=== PATIENT | male | born 1950 | race American Indian/Alaskan Native ===

== ENCOUNTER 2021-01-11 16:55 | Inpatient (IN) | payer OTHER ==
[2021-01-12] MEDS ORDERED: ACETAMINOPHEN 325 MG TAB PO PRN (10:25)
[2021-01-12] MEDS ORDERED: hydrALAZINE 20 MG/1 ML INJ IV PRN (10:26)
[2021-01-12] MEDS ORDERED: ONDANSETRON 4 MG ODT TAB PO PRN (10:26)
[2021-01-12] MEDS ORDERED: POLYETHYLENE GLYCOL 3350 17 GM POWDER PO PRN (10:26)
[2021-01-13] MEDS: HYDROcodone/ACETAMINOPHEN 5-325 MG TAB PO PRN (03:44)
[2021-01-13 06:18] LABS: Basophils % (Auto) 0.8 % (0.0-1.8); Eosinophils # (Auto) 0.1 K/mm3 (0.0-0.4); Eosinophils % (Auto) 2.3 % (0.0-4.3); Hemoglobin 14.3 gm/dl (11.8-15.2); Lymphocytes # (Auto) 1.5 K/mm3 (1.2-5.4); Lymphocytes % (Auto) 28.7 % (13.4-35.0); Mean Corpuscular HGB Conc 34 % (32-34); Mean Corpuscular Volume 92 fl (84-94); Monocytes # (Auto) 0.6 K/mm3 (0.0-0.8); Platelet Count 360 K/mm3 (140-440); Red Blood Count 4.57 M/mm3 (3.65-5.03)
[2021-01-13 06:33] LABS: Alanine Aminotransferase 11 units/L (7-56); Albumin 3.9 g/dL (3.9-5); BUN/Creatinine Ratio 18; Blood Urea Nitrogen 11 mg/dL (9-20); Hemolysis Index 3
--- NOTE | 2021-01-13 08:46 | History and Physical Report ---
History of Present Illness Date: 01/13/21 Date of admission: 01/13/21 02:13 Chief Complaint: Debility and Afib History of present illness: 70-year-old male admitted outside hospital on January 02, 2021 with complaints of chest pain and palpitations over the past several days prior to admission. Patient reportedly had several visits for chest pain in the past. EKG showed atrial fibrillation with RVR with a rate in the 140s. Patient converted to normal sinus rhythm and was started on Eliquis and metoprolol. Recent left heart cath showed no obstructive CAD. Patient did have GERD with PUD and was treated with PPI and Carafate. He underwent a upper GI endoscopy and results showed erosions. Patient was treated for H. pylori however that was stopped prior to transfer. Pathology report did show that the stomach was positive for H. pylori. Will attempt to contact outside hospital to find out why the treatment was stopped. After the patient was medically stabilized they were transferred for further rehabilitation. All available medical records have been reviewed. Plan of care was discussed with patient. Unfortunately patient's transfer was delayed due to insurance approval followed by bed/staff availability. Patient was supposed to be transferred over to rehab later today however for some unknown reason came early this morning about 1 AM. Past History Past Medical History: atrial fib, GERD Past Surgical History: total hip replacement (Left) Social history: Lives alone. denies: smoking (Former), alcohol abuse Family history: CAD, cancer Medications and Allergies Allergies Allergy/AdvReac Type Severity Reaction Status Date / Time No Known Allergies Allergy Unverified 01/12/21 18:31 Home Medications Medication Instructions Recorded Confirmed Last Taken Type Amoxicillin [Trimox CAP] 2 cap BID 01/13/21 01/13/21 01/12/21 19:45 History Apixaban [Eliquis] 5 mg PO BID 01/13/21 01/13/21 01/12/21 19:45 History Clarithromycin [Biaxin] 500 mg PO BID 01/13/21 01/13/21 01/12/21 19:45 History Metoprolol [Lopressor] 25 mg PO BID 01/13/21 01/13/21 01/12/21 19:45 History Pantoprazole [Protonix] 40 mg PO QDAY 01/13/21 01/13/21 01/12/21 08:45 History Active Meds: Active Medications Acetaminophen (Acetaminophen 325 Mg Tab) 650 mg PO Q6H PRN PRN Reason: Pain MILD(1-3)/Fever >100.5/WRIGHT Hydrocodone Bitart/Acetaminophen (Hydrocodone/Acetaminophen 5-325 Mg Tab) 1 each PO Q8H PRN PRN Reason: Pain, Moderate (4-6) Last Admin: 01/13/21 03:44 Dose: 1 each Documented by: Albuterol (Albuterol 2.5 Mg/3 Ml Nebu) 2.5 mg IH Q4HRT PRN PRN Reason: Shortness Of Breath Apixaban (Apixaban 5 Mg Tab) 5 mg PO Q12HR NADINE; Protocol Bisacodyl (Bisacodyl 10 Mg Rect Supp) 10 mg [place] QDAY PRN PRN Reason: Constipation Hydralazine HCl (Hydralazine 20 Mg/1 Ml Inj) 10 mg IV Q4HR PRN PRN Reason: Hypertension Metoprolol Tartrate (Metoprolol Tartrate 25 Mg Tab) 25 mg PO BID NADINE Ondansetron HCl (Ondansetron 4 Mg Odt Tab) 4 mg PO Q8H PRN PRN Reason: Nausea And Vomiting Pantoprazole Sodium (Pantoprazole 40 Mg Tab) 40 mg PO QDAC NADINE Polyethylene Glycol (Polyethylene Glycol 3350 17 Gm Powder) 17 gm PO QDAY PRN PRN Reason: Constipation Review of Systems All systems: negative (ROS negative for 10 systems except as noted below with pertinent positives and negatives.) Constitutional: no fever, no chills Ears, nose, mouth and throat: no decreased hearing, no voice changes Cardiovascular: no chest pain, no palpitations, no rapid/irregular heart beat, no edema Respiratory: no cough, no shortness of breath Gastrointestinal: no abdominal pain, no nausea, no vomiting Genitourinary Male: no hematuria Musculoskeletal: no shooting arm pain, no shooting leg pain Integumentary: no rash, no pruritis, no redness, no sores Neurological: no weakness, no numbness, no tingling Psychiatric: no anxiety, no insomnia Exam - Exam Narrative exam: MUSCULOSKELETAL SPECIALTY EXAM CONSTITUTIONAL: Well developed, well nourished, appropriately groomed LYMPHATIC: No appreciable abnormalities palpable in neck EENT: Hearing intact to soft voice RESPIRATORY: Clear to auscultation bilaterally, no increased work of breathing CARDIOVASCULAR: Regular Rate/ Rhythm, no swelling, edema or tenderness in BUE or BLE. Pulses palpable in all extremities. All extremities warm. GI: + bowel sounds, soft, NTTP, nondistended. INTEGUMENTARY: Normal, no lesion, rash, masses or bruising noted in extremities. MUSCULOSKELETAL: BUE and BLE normal without defect, crepitus, subluxation, effusion, arthritic changes or TTP. BUE 4+/5, good ROM, with normal tone. BLE 4+/5 good ROM, with normal tone NEURO: CN 2-12 grossly intact. Sensation intact in all extremities. Reflexes 2+ bilaterally at biceps, brachioradialis and patella. No clonus at ankles. Coordination intact in BUE. No tremor noted in 4 extremities. POSTURE and GAIT: Sitting posture good. Balance appears reasonable with standing. Gait deferred until seen with therapy. PSYCH: Alert, oriented x3, affect appears normal. Insight appears intact. - Constitutional Vitals: Vital Signs - 12hr 01/13/21 01/13/21 01/13/21 02:48 03:44 03:45 Temperature 98.5 F Pulse Rate 75 Pulse Rate [ 61 Right Radial] Respiratory 17 17 18 Rate Blood Pressure 104/64 [Right Arm] Blood Pressure 112/85 [Right] O2 Sat by Pulse 98 99 Oximetry - Labs CBC & Chem 7: 01/13/21 05:58 01/13/21 05:58 Labs: Laboratory Results - last 72 hr 01/13/21 01/13/21 05:58 05:58 WBC 5.3 RBC 4.57 Hgb 14.3 Hct 42.0 MCV 92 MCH 31 MCHC 34 RDW 14.0 Plt Count 360 Lymph % (Auto) 28.7 [place] % (Auto) 11.0 H Eos % (Auto) 2.3 Baso % (Auto) 0.8 Lymph # (Auto) 1.5 [place] # (Auto) 0.6 Eos # (Auto) 0.1 Baso # (Auto) 0.0 Seg Neutrophils % 57.2 Seg Neutrophils # 3.0 Sodium 140 Potassium 3.5 L Chloride 102.5 Carbon Dioxide 29 Anion Gap 12 BUN 11 Creatinine 0.6 L Estimated GFR > 60 BUN/Creatinine Ratio 18 Glucose 90 Calcium 9.0 Total Bilirubin 0.30 AST 16 ALT 11 Alkaline Phosphatase 52 Total Protein 7.5 Albumin 3.9 Albumin/Globulin Ratio 1.1 Assessment and Plan Assessment and plan: Patient was assessed and evaluated for Acute Inpatient Rehab Unit. Due to the patients above-mentioned medical complexity, along with decreased functional mobility and self care, this patient continues to require and be appropriate for a comprehensive, multidisciplinary [id number] rehabili tation program. These needs cannot be met in an outpatient or other less intensive setting. The patient would continue to benefit from skilled therapy intervention for at least 3 hours per day, five days a week, with techniques specific to the needs of the patient to improve function, activities of daily living, and reintegration into the community. The patient continues to require: -- OT to improve ROM, self-care, and learn use of adaptive equipment -- PT to improve strength and balance, functional transfers, and ambulation with energy conservation techniques to improve functional mobility -- NIGHT STOCKER to address cognitive deficits -- 24 hour RN to ensure and prevent skin breakdown, promote progressive independence while ensuring safety, ensure education regarding medications, and incorporation of the rehabilitation at the bedside -- 24 hour Quality Review Specialist to coordinate this interdisciplinary program, and to manage/prevent complications as a result of the patients medical comorbidities. -Plan of care by day 4 -Weekly team conferences With such a program, there is a reasonable certainty that the goals individualized for this patient can be achieved within the specified length of stay. Atrial fibrillation: Continue anticoagulation and rate control. Monitor for any signs of worsening dysrhythmia. Consider cardiology consult if needed. GERD/PUD with recent diagnosis of H. pylori: Uncertain why treatment was stopped at outside hospital prior to discharge. Will attempt to contact outside hospital to find out if they prefer to continue H. pylori treatment or if they felt he was fully treated prior to discharge. ADL dysfunction: OT will work on improving ability to perform ADLs (including assistive devices) to increase independence and decrease caregiver burden and improve functional transfers and mobility training. Difficulty walking: PT will work on gait training and proper use of assistive devices and advance as appropriate to use of stairs and outside ambulation on uneven surfaces. Unsteadiness on feet: PT will work on improving static and dynamic sitting and standing balance as well as proper use of assistive devices to decrease risk of falls. Abnormality of gait: PT will work to improve safety and efficiency of gait through neuromotor training and gait training along with instruction on proper use of assistive devices. Muscle weakness: PT & OT will work on strengthening exercises to improve functional strength including mixture of closed and open kinetic chain exercises. Debility: PT & OT will work on improving overall functional status to improve participation with ADLs, mobility and social involvement. Fatigue: PT & OT will work on improving endurance through aerobic exercises and therapeutic activity while monitoring patients tolerance for activity and vital signs as needed. DVT ppx: Eliquis Pain: Continue physical modalities in therapy and pain medications as needed to achieve functional pain control. Sleep: Monitor and address as needed. Bowel: Monitor and address as needed. Appetite: Monitor and address as needed. Discharge planning: Pending therapy progress and care plan meeting. Will continue discussion with therapy team, SW, patient and family. Restrictions/ Precautions: Falls, cardiac WB status: FWB Functional Hx: ADLs: Independent Cognition: Independent Mobility: No AD Barriers to Discharge: Decreased mobility and ability to perform self care, balance deficits, weakness Estimated Length of Stay: 710 days Discharge Destination: Home with family support POST ADMISSION PHYSICIAN EVALUATION I have examined the patient and find that functional status, medical condition and appropriateness for IRF admission are essentially unchanged from those described in the preadmission screening. Will monitor for worsening atrial fibrillation/dysrhythmia, DVT/PE, bowel and bladder complications and complications due to peptic ulcer disease, hypotension, and electrolyte abnormalities. Will attempt to avoid occurrence of these issues or treat them if they present themselves.
[2021-01-13] MEDS: PANTOPRAZOLE 40 MG TAB PO SCH (09:06)
[2021-01-13] MEDS: APIXABAN 5 MG TAB PO SCH ×2 (09:17→20:45)
[2021-01-13] MEDS: POTASSIUM CHLORIDE ER 20 MEQ TAB PO SCH (09:17)
[2021-01-13] MEDS: METOPROLOL TARTRATE 25 MG TAB PO SCH ×2 (09:20→20:45)
[2021-01-13] MEDS ORDERED: PE/MO/PET,WH 10 APPLIC/28 GM TUBE PR PRN (15:00)
[2021-01-13] MEDS ORDERED: PHENYLEPHRINE/SHARK LIVER/CCB 0.25/3/85.5%(PREP H) RECT SUPP PR PRN (15:00)
[2021-01-13] MEDS ORDERED: traZODone 50 MG TAB PO PRN (19:49)
[2021-01-13] MEDS: ALBUTEROL 2.5 MG/3 ML NEBU IH PRN (20:49)
[2021-01-14] MEDS: HYDROcodone/ACETAMINOPHEN 5-325 MG TAB PO PRN ×2 (01:34→21:49)
[2021-01-14] MEDS: APIXABAN 5 MG TAB PO SCH ×4 (01:41→21:52)
[2021-01-14] MEDS: METOPROLOL TARTRATE 25 MG TAB PO SCH ×3 (01:41→21:51)
--- NOTE | 2021-01-14 07:01 | Progress Note ---
Subjective Date of service: 01/14/21 Principal diagnosis: Debility and Afib Interval history: 70-year-old male admitted outside hospital on January 02, 2021 with complaints of chest pain and palpitations over the past several days prior to admission. Patient reportedly had several visits for chest pain in the past. EKG showed atrial fibrillation with RVR with a rate in the 140s. Patient converted to normal sinus rhythm and was started on Eliquis and metoprolol. Recent left heart cath showed no obstructive CAD. Patient did have GERD with PUD and was treated with PPI and Carafate. He underwent a upper GI endoscopy and results showed erosions. Patient was treated for H. pylori however that was stopped prior to transfer. Pathology report did show that the stomach was positive for H. pylori. Will attempt to contact outside hospital to find out why the treatment was stopped. Interval History: Patient is participating in therapy and making reasonable progress. Taking rest breaks as needed. +BM. Denies pain, palpitations, cough, N/V, weakness, or joint pain. Was called at 4 AM this morning by nursing stating that the patient was having dyspnea and could not breathe however vital signs were all normal. O2 sats increased from mid 90s to high 90s on 2-3 L of O2. Nursing handed the phone to the patient for me to talk to the patient and he was able to communicate, did not seem to be in any immediate distress and was not gasping for air. I ordered stat EKG, chest x-ray, cardiac enzymes due to the patient's history. Unfortunately labs and x-ray are still not available 3 hours later. I have examined the patient and do not see him being in any acute distress at the [facility]. EKG was reviewed and showed normal sinus rhythm. Question to patient extensively on past mental history and he denies any issues of depression, anxiety, PTSD. He was in the [employer] but was stationed outside of any combat area. Patient is not a great historian of his medical issues in the past and his train of thought seems to be slightly random. Differential for him includes cardiac/pulmonary etiology but I am awaiting further labs/x-rays to rule those out, also dementia and or anxiety. Patient states that he called 911 last night from his room in order to be taken to the hospital, will attempt to confirm this with nursing. Nursing did state that he was asking them to call 911 in order to take him to the hospital this morning at 4 AM. According to the outside records, the patient does have a history of calling 911 frequently in order to go to the hospital for similar episodes and from what I can see out of the records available to me apparently his work-ups have typically been benign. Due to his cardiac history I will continue to work him up to rule out any physiologic issues and will then look at possible psychological issues and will end up likely treating him with low-dose benzodiazepine for anxiety if that appears to be the etiology for his repeated issues of dyspnea/chest pain. BIMs score 15. Atrial fibrillation: Continue to monitor for any exacerbations. EKG performed this morning and was normal sinus rhythm. Continue rate control and anticoagulation. Monitor for any signs of bleeding on a regular basis with labs and examination. Patient is high risk for sudden decompensation due to possibility of atrial fibrillation induced embolism or bleeding event from anticoagulation. GERD/PUD with H. pylori: Uncertain as to why antibiotics were stopped at outside hospital on initial paperwork that we received for the patient's discharge orders. New set a paper orders were received and it does appear that they have changed his orders to include the antibiotics which we have started today. We will continue those for a period of 5 days as initially ordered in order to finish the patient's antibiotics course. Remains on Protonix as well. No signs of GI bleed currently. We will look to possibly start Carafate for short time as well. Insomnia: Trazodone was started however due to need to avoid QT prolongation, will stop that and choose another agent today after we have more information from the work-up that was ordered at 4 AM. ADL and mobility dysfunction: Continue therapy in order to improve patient's ability to perform ADLs and self-care as well as safe mobility. Dyspnea of uncertain cause: After examining the patient running the test that have been run so far we do not have a good reason for the patient's dyspneic episode this morning. Feel like he was likely experiencing anxiety but the patient states that he does not understand what that is and does not feel like he was experiencing that. He admits that he has taken Xanax from a family member in the recent past for pain and has taken a gummy of some sort from another family member and is uncertain what was in the gummy. All records, vitals, labs and medications were reviewed. No other issues per patient, nursing or therapy. In total, greater than 75 minutes was invested in patient care today including ordering and reviewing stat labs and testing, extended exam and interview with the patient and rechecking on the patient throughout the morning. Objective - Exam Narrative Exam: MUSCULOSKELETAL SPECIALTY EXAM CONSTITUTIONAL: Well developed, well nourished, appropriately groomed EENT: Hearing intact to soft voice RESPIRATORY: Clear to auscultation bilaterally, no increased work of breathing CARDIOVASCULAR: Regular Rate/ Rhythm, no swelling, edema or tenderness in BUE or BLE. All extremities warm. GI: + bowel sounds, soft, NTTP, nondistended. INTEGUMENTARY: Normal, no lesion, rash, masses or bruising noted in extremities. MUSCULOSKELETAL: BUE and BLE normal without defect, crepitus, subluxation, effusion, arthritic changes or TTP. BUE 4+/5, good ROM, with normal tone. BLE 4+/5 good ROM, with normal tone NEURO: CN 2-12 grossly intact. Sensation intact in all extremities. Coordination intact in BUE. No tremor noted in 4 extremities. POSTURE and GAIT: Sitting posture good. Balance appears reasonable with standing. Gait observed with patient walking around in room as I entered this morning, no loss of balance witnessed. PSYCH: Alert, oriented x3, affect appears normal. Insight appears intact the patient does seem to have some issues with memory even though he is oriented x3 and can give me some basic information regarding his personal history. - Constitutional Vitals: Vital Signs - 12hr 01/13/21 01/13/21 01/13/21 19:07 20:45 20:49 Temperature 97.5 F L Pulse Rate 69 68 Pulse Rate [ 64 Anterior Bilateral] Pulse Rate [ Right Radial] Respiratory 18 Rate Respiratory Rate [Abdomen] Respiratory 16 Rate [Anterior Bilateral] Blood Pressure 115/86 127/84 Blood Pressure [Right] O2 Sat by Pulse 100 Oximetry 01/13/21 01/14/21 01/14/21 22:00 01:34 01:35 Temperature Pulse Rate 66 Pulse Rate [ Anterior Bilateral] Pulse Rate [ Right Radial] Respiratory 17 17 Rate Respiratory 17 Rate [Abdomen] Respiratory Rate [Anterior Bilateral] Blood Pressure Blood Pressure 130/82 [Right] O2 Sat by Pulse 98 Oximetry 01/14/21 01/14/21 01/14/21 02:00 02:34 02:48 Temperature Pulse Rate Pulse Rate [ Anterior Bilateral] Pulse Rate [ 78 Right Radial] Respiratory 17 17 Rate Respiratory Rate [Abdomen] Respiratory Rate [Anterior Bilateral] Blood Pressure Blood Pressure [Right] O2 Sat by Pulse 100 99 Oximetry 01/14/21 04:30 Temperature 97.9 F Pulse Rate 60 Pulse Rate [ Anterior Bilateral] Pulse Rate [ Right Radial] Respiratory 18 Rate Respiratory Rate [Abdomen] Respiratory Rate [Anterior Bilateral] Blood Pressure 113/68 Blood Pressure [Right] O2 Sat by Pulse 100 Oximetry - Allied health notes Allied health notes reviewed: nursing, PT, ST, OT FIMS assessment as documented by PT/OT/ST: Grooming Patient cleans teeth/dentures: Yes Patient berger/brushes hair: Yes Patient washes, rinses and Yes dries face: Patient washes, rinses and Yes dries hands: Patient performs (no make-up/ / (100%) shaving): Grooming FIM Score 6. Modified [place] (Needs equipment/device . Extra time.) Social interaction/Memory/Problem solving Social Interaction FIM Score 5. Supervision (Needs supv. <10%. Needs encouragement to participate.) Memory FIM Score 4. Minimal Assistance (Recognizes and remembers 75-90%.) Problem Solving FIM Score 4. Minimal Assistance (Solves routine problems 75-90%.) Transfers Mode of Locomotion: Walking Toilet Transfers FIM Score 5. Supervision (Needs supervision or cueing.) Patient transferred to: Shower Shower Transfers FIM Score 5. Supervision (Needs supv. or set-up with device.) Locomotion- walk/wheelchair Ambulation Distance 120 Eating Eating FIM Score 7. Complete [place] (Cuts meat, opens containers, regular diet.) Dressing-Upper body Patient retrieves clothing Yes items: Patient applies/removes UE No prosthesis or orthosis: Upper Body Dressing FIM Score 5. Supv./Set-Up ([place] sets out clothes or applies pros./orth.) Dressing-lower body Patient retrieves clothing Yes: needs sock aid and shoe horn items: Patient applies/removes LE No: n/a prosthesis or orthosis: Lower Body Dressing FIM Score 4. Minimal Assistance (Patient = 75% or more. Needs touching.) - Labs CBC & Chem 7: 01/13/21 05:58 01/13/21 05:58 Labs: Laboratory Results - last 72 hr 01/13/21 01/13/21 01/13/21 05:58 05:58 05:58 WBC 5.3 RBC 4.57 Hgb 14.3 Hct 42.0 MCV 92 MCH 31 MCHC 34 RDW 14.0 Plt Count 360 Lymph % (Auto) 28.7 [place] % (Auto) 11.0 H Eos % (Auto) 2.3 Baso % (Auto) 0.8 Lymph # (Auto) 1.5 [place] # (Auto) 0.6 Eos # (Auto) 0.1 Baso # (Auto) 0.0 Seg Neutrophils % 57.2 Seg Neutrophils # 3.0 Sodium 140 Potassium 3.5 L Chloride 102.5 Carbon Dioxide 29 Anion Gap 12 BUN 11 Creatinine 0.6 L Estimated GFR > 60 BUN/Creatinine Ratio 18 Glucose 90 Calcium 9.0 Magnesium 2.10 Total Bilirubin 0.30 AST 16 ALT 11 Alkaline Phosphatase 52 Total Protein 7.5 Albumin 3.9 Albumin/Globulin Ratio 1.1 Assessment and Plan Atrial fibrillation: Continue anticoagulation and rate control. Monitor for any signs of worsening dysrhythmia. Consider cardiology consult if needed. GERD/PUD with recent diagnosis of H. pylori: Uncertain why treatment was stopped at outside hospital prior to discharge. Will restart antibiotic treatment for H pylori. Subjective dyspnea: Work-up still in progress, patient and vitals are stable, feel like this is likely related to anxiety. Insomnia: Started trazodone home the patient last night however due to restarting antibiotics and other medications and his recent EKG, will discontinue trazodone and start another agent to avoid QT prolongation. ADL dysfunction: OT will work on improving ability to perform ADLs (including assistive devices) to increase independence and decrease caregiver burden and improve functional transfers and mobility training. Difficulty walking: PT will work on gait training and proper use of assistive devices and advance as appropriate to use of stairs and outside ambulation on uneven surfaces. Unsteadiness on feet: PT will work on improving static and dynamic sitting and standing balance as well as proper use of assistive devices to decrease risk of falls. Abnormality of gait: PT will work to improve safety and efficiency of gait through neuromotor training and gait training along with instruction on proper use of assistive devices. Muscle weakness: PT & OT will work on strengthening exercises to improve functional strength including mixture of closed and open kinetic chain exercises. Debility: PT & OT will work on improving overall functional status to improve participation with ADLs, mobility and social involvement. Fatigue: PT & OT will work on improving endurance through aerobic exercises and therapeutic activity while monitoring patients tolerance for activity and vital signs as needed. DVT ppx: Eliquis Pain: Continue physical modalities in therapy and pain medications as needed to achieve functional pain control. Sleep: Monitor and address as needed. Bowel: Monitor and address as needed. Appetite: Monitor and address as needed. Discharge planning: Pending therapy progress and care plan meeting. Will continue discussion with therapy team, SW, patient and family. Restrictions/ Precautions: Falls, cardiac WB status: FWB Functional Hx: ADLs: Independent Cognition: Independent Mobility: No AD Barriers to Discharge: Decreased mobility and ability to perform self care, balance deficits, weakness Estimated Length of Stay: 710 days Discharge Destination: Home with family support
--- NOTE | 2021-01-14 08:13 | XRay Report ---
CHEST 2 VIEWS INDICATION: chest pain, dyspnea. COMPARISON: None FINDINGS: Support devices: None. Heart: Within normal limits. Lungs/pleura: The lungs are hyperinflated suggesting moderate COPD. No acute infiltrate, pleural eff usion or pneumothorax is detected. Additional findings: None. IMPRESSION: No acute findings. Emphysematous changes are suspected. Signer Name: Jonathon Zamora Jr, MD Signed: 01/14/2021 8:09 AM Workstation Name: [id number]
[2021-01-14] MEDS: PANTOPRAZOLE 40 MG TAB PO SCH (08:42)
[2021-01-14] MEDS: CLARITHROMYCIN 500 MG TAB PO SCH ×3 (08:42→21:50)
[2021-01-14] MEDS: POTASSIUM CHLORIDE ER 20 MEQ TAB PO SCH (08:42)
[2021-01-14] MEDS: AMOXICILLIN 500 MG CAP PO SCH ×3 (08:42→21:51)
[2021-01-14 10:01] LABS: Creatine Kinase MB 2.2 ng/mL (0.0-4.0)
[2021-01-14] MEDS: ALBUTEROL 2.5 MG/3 ML NEBU IH PRN (18:50)
--- NOTE | 2021-01-15 07:55 | Progress Note ---
Subjective Date of service: 01/15/21 Principal diagnosis: Debility and Afib Interval history: 70-year-old male admitted outside hospital on January 02, 2021 with complaints of chest pain and palpitations over the past several days prior to admission. Patient reportedly had several visits for chest pain in the past. EKG showed atrial fibrillation with RVR with a rate in the 140s. Patient converted to normal sinus rhythm and was started on Eliquis and metoprolol. Recent left heart cath showed no obstructive CAD. Patient did have GERD with PUD and was treated with PPI and Carafate. He underwent a upper GI endoscopy and results showed erosions. Patient was treated for H. pylori however that was stopped prior to transfer. Pathology report did show that the stomach was positive for H. pylori. Will attempt to contact outside hospital to find out why the treatment was stopped. Interval History: Patient is participating in therapy and making reasonable progress. Taking rest breaks as needed. +BM. Denies pain, palpitations, cough, N/V, weakness, or joint pain. No acute events overnight, patient is standing outside of his room awaiting therapy when I went to see him. Continues to have poor safety awareness and shows signs of cognitive dysfunction, poorly defined. Atrial fibrillation: Continue to monitor for any exacerbations. EKG performed 01/14 showed normal sinus rhythm. Continue rate control and anticoagulation. Monitor for any signs of bleeding on a regular basis with labs and examination. Patient is high risk for sudden decompensation due to possibility of atrial fibrillation induced embolism or bleeding event from anticoagulation. GERD/PUD with H. pylori: Continue antibiotics. Carafate restarted. Remains on Protonix as well. No signs of GI bleed currently, hemoglobin improving. Continue to monitor, no nausea, vomiting, bloody stools reported. Insomnia: Trazodone stopped due to medication interactions with restarting antibiotics. Patient slept well with no agents last night. Will start melatonin. Monitor for improvement ADL and mobility dysfunction: Continue therapy in order to improve patient's ability to perform ADLs and self-care as well as safe mobility. Dyspnea of uncertain cause: No clear cause for the patient's dyspnea. Vital signs remained stable during the entire course of his episode. Did not have a repeat episode last night. Have prescribed anxiolytic however patient did not utilize it last night. Have discussed with nursing as well. All associated test ordered for dyspnea were reviewed and were negative. All records, vitals, labs and medications were reviewed. No other issues per patient, nursing or therapy. Objective - Exam Narrative Exam: MUSCULOSKELETAL SPECIALTY EXAM CONSTITUTIONAL: Well developed, well nourished, appropriately groomed EENT: Hearing intact to soft voice RESPIRATORY: Clear to auscultation bilaterally, no increased work of breathing CARDIOVASCULAR: Regular Rate/ Rhythm, no swelling, edema or tenderness in BUE or BLE. All extremities warm. GI: + bowel sounds, soft, NTTP, nondistended. INTEGUMENTARY: Normal, no lesion, rash, masses or bruising noted in extremities. MUSCULOSKELETAL: BUE and BLE normal without defect, crepitus, subluxation, effusion, arthritic changes or TTP. BUE 4+/5, good ROM, with normal tone. BLE 4+/5 good ROM, with normal tone NEURO: CN 2-12 grossly intact. Sensation intact in all extremities. Coordination intact in BUE. No tremor noted in 4 extremities. POSTURE and GAIT: Sitting posture good. Balance appears reasonable with standing. Gait observed with patient walking around in the [place], no loss of balance witnessed. PSYCH: Alert, oriented x3, affect appears normal. Insight appears intact the patient does seem to have some issues with memory even though he is oriented x3 and can give me some basic information regarding his personal history. Appears to have cognitive dysfunction which is poorly defined. - Constitutional Vitals: Vital Signs - 12hr 01/14/21 01/14/21 01/14/21 21:00 21:49 21:51 Temperature Pulse Rate 86 Respiratory 18 Rate Blood Pressure 139/75 O2 Sat by Pulse 97 Oximetry 01/15/21 04:03 Temperature 98.1 F Pulse Rate 83 Respiratory 18 Rate Blood Pressure 129/81 O2 Sat by Pulse 97 Oximetry - Allied health notes Allied health notes reviewed: nursing, PT, OT FIMS assessment as documented by PT/OT/ST: Grooming Patient cleans teeth/dentures: Yes Patient berger/brushes hair: Yes Patient washes, rinses and Yes dries face: Patient washes, rinses and Yes dries hands: Patient performs (no make-up/ /4 (100%) shaving): Grooming FIM Score 6. Modified [place] (Needs equipme nt/device . Extra time.) Social interaction/Memory/Problem solving Social Interaction FIM Score 4. Minimal Assistance (Interacts appropriately 75-90%.) Memory FIM Score 4. Minimal Assistance (Recognizes and remembers 75-90%.) Problem Solving FIM Score 4. Minimal Assistance (Solves routine problems 75-90%.) Transfers Mode of Locomotion: Walking Toilet Transfers FIM Score 5. Supervision (Needs supervision or cueing.) Patient transferred to: Shower Shower Transfers FIM Score 5. Supervision (Needs supv. or set-up with device.) Locomotion- walk/wheelchair Ambulation Distance 120 Eating Eating FIM Score 7. Complete [place] (Cuts meat, opens containers, regular diet.) Dressing-Upper body Patient retrieves clothing Yes items: Patient applies/removes UE No prosthesis or orthosis: Upper Body Dressing FIM Score 5. Supv./Set-Up ([place] sets out clothes or applies pros./orth.) Dressing-lower body Patient retrieves clothing Yes: needs sock aid and shoe horn items: Patient applies/removes LE No: n/a prosthesis or orthosis: Lower Body Dressing FIM Score 4. Minimal Assistance (Patient = 75% or more. Needs touching.) - Labs CBC & Chem 7: 01/15/21 08:00 01/15/21 08:00 Labs: Laboratory Results - last 72 hr 01/13/21 01/13/21 01/13/21 05:58 05:58 05:58 WBC 5.3 RBC 4.57 Hgb 14.3 Hct 42.0 MCV 92 MCH 31 MCHC 34 RDW 14.0 Plt Count 360 Lymph % (Auto) 28.7 [place] % (Auto) 11.0 H Eos % (Auto) 2.3 Baso % (Auto) 0.8 Lymph # (Auto) 1.5 [place] # (Auto) 0.6 Eos # (Auto) 0.1 Baso # (Auto) 0.0 Seg Neutrophils % 57.2 Seg Neutrophils # 3.0 Sodium 140 Potassium 3.5 L Chloride 102.5 Carbon Dioxide 29 Anion Gap 12 BUN 11 Creatinine 0.6 L Estimated GFR > 60 BUN/Creatinine Ratio 18 Glucose 90 Calcium 9.0 Magnesium 2.10 Total Bilirubin 0.30 AST 16 ALT 11 Alkaline Phosphatase 52 Total Creatine Kinase CK-MB (CK-2) CK-MB (CK-2) Rel Index Troponin T Total Protein 7.5 Albumin 3.9 Albumin/Globulin Ratio 1.1 01/14/21 08:10 WBC RBC Hgb Hct MCV MCH MCHC RDW Plt Count Lymph % (Auto) [place] % (Auto) Eos % (Auto) Baso % (Auto) Lymph # (Auto) [place] # (Auto) Eos # (Auto) Baso # (Auto) Seg Neutrophils % Seg Neutrophils # Sodium Potassium Chloride Carbon Dioxide Anion Gap BUN Creatinine Estimated GFR BUN/Creatinine Ratio Glucose Calcium Magnesium Total Bilirubin AST ALT Alkaline Phosphatase Total Creatine Kinase 102 CK-MB (CK-2) 2.2 CK-MB (CK-2) Rel Index 2.1 Troponin T < 0.010 Total Protein Albumin Albumin/Globulin Ratio Assessment and Plan Atrial fibrillation: Continue anticoagulation and rate control. Monitor for any signs of worsening dysrhythmia. Consider cardiology consult if needed. GERD/PUD with recent diagnosis of H. pylori: Uncertain why treatment was stopped at outside hospital prior to discharge. Continue antibiotic treatment for H pylori, PPI and Carafate. Subjective dyspnea: Work-up completed and all results reviewed, negative. patient and vitals are stable, feel like this is likely related to anxiety. No acute episodes overnight Insomnia: Start melatonin. Trazodone stopped yesterday due to possible QT prolo ngation risk when restarting antibiotics. Hemorrhoids: Chronic issue, prescribed cream and suppository at the patient's request an acute flareup has calmed down. Medications remain available as need ed. Cognitive dysfunction: Unknown etiology and poorly defined. Patient is oriented and can answer some basic questions about his medical condition, scored a 15 on BIMs. However interactions with the patient to give the clinical impression of cognitive dysfunction. ADL dysfunction: OT will work on improving ability to perform ADLs (including assistive devices) to increase independence and decrease caregiver burden and improve functional transfers and mobility training. Difficulty walking: PT will work on gait training and proper use of assistive devices and advance as appropriate to use of stairs and outside ambulation on uneven surfaces. Unsteadiness on feet: PT will work on improving static and dynamic sitting and standing balance as well as proper use of assistive devices to decrease risk of falls. Abnormality of gait: PT will work to improve safety and efficiency of gait [facility] neuromotor training and gait training along with instruction on proper use of assistive devices. Muscle weakness: PT & OT will work on strengthening exercises to improve functional strength including mixture of closed and open kinetic chain exercises. Debility: PT & OT will work on improving overall functional status to improve participation with ADLs, mobility and social involvement. Fatigue: PT & OT will work on improving endurance through aerobic exercises and therapeutic activity while monitoring patients tolerance for activity and vital signs as needed. DVT ppx: Eliquis Pain: Continue physical modalities in therapy and pain medications as needed to achieve functional pain control. Sleep: Monitor and address as needed. Bowel: Monitor and address as needed. Appetite: Monitor and address as needed. Discharge planning: Pending therapy progress and care plan meeting. Will continue discussion with therapy team, SW, patient and family. Restrictions/ Precautions: Falls, cardiac WB status: FWB Functional Hx: ADLs: Independent Cognition: Independent Mobility: No AD Barriers to Discharge: Decreased mobility and ability to perform self care, balance deficits, weakness Estimated Length of Stay: 710 days Discharge Destination: Home with family support - Patient Problems (1) Atrial fibrillation Current Visit: Yes Status: Acute (2) Other reduced mobility Current Visit: Yes Status: Acute (3) Need for assistance with personal care Current Visit: Yes Status: Acute (4) Anxiety disorder, unspecified Current Visit: Yes Status: Acute (5) Acute peptic ulcer, site unspecified, without hemorrhage or perforation Current Visit: Yes Status: Acute (6) Helicobacter pylori [H. 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
[2021-01-15] MEDS: APIXABAN 5 MG TAB PO SCH ×3 (08:12→22:04)
[2021-01-15] MEDS: METOPROLOL TARTRATE 25 MG TAB PO SCH ×2 (08:13→22:03)
[2021-01-15] MEDS: PANTOPRAZOLE 40 MG TAB PO SCH (08:13)
[2021-01-15 08:15] LABS: Hematocrit 44.7 % (35.5-45.6); Hemoglobin 15.1 gm/dl (11.8-15.2); Mean Corpuscular HGB Conc 34 % (32-34); Mean Corpuscular Volume 92 fl (84-94); Platelet Count 387 K/mm3 (140-440); Red Blood Count 4.87 M/mm3 (3.65-5.03); Red Cell Distribution Width 13.9 % (13.2-15.2)
[2021-01-15] MEDS: CLARITHROMYCIN 500 MG TAB PO SCH ×3 (08:15→22:04)
[2021-01-15] MEDS: AMOXICILLIN 500 MG CAP PO SCH ×3 (08:15→22:05)
[2021-01-15 08:37] LABS: Blood Urea Nitrogen 12 mg/dL (9-20); Calcium 10.2 mg/dL (8.4-10.2); Hemolysis Index 8
--- NOTE | 2021-01-15 09:16 | Electrocardiograph Report ---
[facility] Test Date: 2021-01-14 Test Time: 04:47:31 Pat Name: RENEE KEITH Department: Room: 04 1 Gender: M Emergency Planner: ABRIL : 1950 Requested By: WILBERT SZYMANSKI III Order Number: [id number] Reading MD: Celio Arora Measurements Intervals Glide Rate: 60 P: 60 AK: 189 QRS: 51 QRSD: 95 T: 48 QT: 430 QTc: 429 Interpretive Statements Sinus rhythm Probable left atrial enlargement Left ventricular hypertrophy No previous ECG available for comparison Electronically Signed On 01-15-2021 9:16:25 EDT by Celio Arora
[2021-01-15 09:18] LABS: BUN/Creatinine Ratio 17
[2021-01-15] MEDS: SUCRALFATE 1 GM TAB PO SCH ×3 (12:15→22:04)
[2021-01-15] MEDS: POTASSIUM CHLORIDE ER 20 MEQ TAB PO SCH (15:00)
--- NOTE | 2021-01-15 19:45 | IRU Plan of Care ---
Interdisciplinary Plan of Care - IP IRU INTERDISCIPLINARY PLAN: [facility] Inpatient Rehab Unit Plan of Care IRU Interdisciplinary Care Plan Start: 01/13/21 02:48 Freq: Admission then PRN Status: Active Protocol: Document 01/15/21 15:38 AB (Rec: 01/15/21 15:50 AB [id number]) Interdisciplinary Problem List Interdisciplinary Problem List Interdisciplinary Problem List Impaired Bathing/Grooming, Query Text:Answers will Trigger Problems Impaired Dressing,Impaired and Outcomes on Worklist. Mobility,Impaired Transfers, Impaired Toileting,Impaired Comprehension,Impaired Problem Solving,Impaired Memory, Impaired Home Management, Impaired Safety IRU Interdisciplinary Care Plan Therapy Services Therapy Services Will Include: Physical Therapy,Occupational Query Text:Patient will be seen for a Therapy minimum of 3 hours of daily therapy 5 out of 7 days a week. Therapy intensity may be adjusted within a 7 consecutive day period to effectively serve the individual needs of the patient. Treatment Frequency/Intensity/Duration Treatment Frequency 3 hours/ day Treatment Intensity 5x/ week Treatment Duration 7-10 days Problem Area: Eating/Swallowing Eating/Swallowing Outcomes Eating/Swallowing Interventions Problem Area: Bathing/Grooming Bathing/Grooming Outcomes Improve [place] w/ Grooming,Improve [place] w/ Bathing Bathing/Grooming Interventions ADL Training,Use of Assistive Devices,Therapeutic Exercise, Therapeutic Activity, Neuromuscular Re-Education, Balance Work,Activity Tolerance Work,Patient/ Caregiver Education Problem Area: Dressing Dressing Outcomes Improve [place] w/ UB Dressing,Improve [place] w/ LB Dressing Dressing Interventions ADL Training,Use of Assistive Devices,Neuromuscular Re- Education,Therapeutic Exercise ,Balance Work,Modalities, Patient/Caregiver Education Problem Area: Mobility Mobility Outcomes Improve [place] w/ Ambulation,Improve [place] w/ Stairs/Curb Mobility Interventions Therapeutic Exercise, Neuromuscular Re-Ed.,Activity Tolerance Work,Use of Assistive Devices,Patient/ Caregiver Education,Gait Training,Household Mobility Work Problem Area: Transfers Transfers Outcomes Improve [place] w/ Toilet Transfers,Improve [place] w/ Tub/Shower Transfers Transfers Interventions Transfer Training,Therapeutic Exercise,Neuromuscular Re- Education,Visual/Perceptual Training,Activity Tolerance Work,Modalities,Use of Assistive Devices,Patient/ Caregiver Education Problem Area: Bowel/Bladder Managment Bowel/Bladder Outcomes Bowel/Bladder Interventions Problem Area: Toileting Toileting Outcomes Improve [place] w/ Toileting Toileting Interventions ADL Training,Balance Work,Use of Assistive Devices,Patient/ Caregiver Education Problem Area: Nutrition Nutrition Outcomes Nutrition Interventions Problem Area: Comprehension Comprehension Outcomes Comprehension Interventions Problem Area: Expression Expression Outcomes Expression Interventions Problem Area: Problem Solving Problem Solving Outcomes Improve Problem Solving Problem Solving Interventions Safety Education,Patient/ Caregiver Education Problem Area: Memory Memory Outcomes Memory Interventions Problem Area: Pain Management Pain Management Outcomes Pain Management Interventions Problem Area: Knowledge Deficits Knowledge Deficits Outcomes Demonstrate Ability to Manage Blood Glucose Knowledge Deficits Interventions Disease/Injury/Sx. Intervention Education, Medication Use Education, Disease Management Education Problem Area: Skin/Tissue Integrity Skin/Tissue Integrity Outcomes Skin/Tissue Integrity Interventions Problem Area: Social Interaction Social Interaction Outcomes Social Interaction Interventions Problem Area: Adjustment to Disability Adjustment to Disability Outcomes Adjustment to Disability Interventions Problem Area: Discharge Concerns Discharge Concerns Outcomes Discharge w/ Necessary Equipment,Have Home Health/ Outpatient Services Discharge Concerns Interventions Discharge Planning,Equipment Assessment, Acquisition and Placement,Family/Caregiver Training Problem Area: Community Reintegration Community Reintegration Outcomes Community Reintegration Interventions Problem Area: Home Management Home Management Outcomes Improve [place] w/ Home Management Home Management Interventions Meal Preparation,Clothing Care ,Activity Tolerance Work, Patient/Caregiver Education Problem Area: Safety Safety Outcomes Provide Safe Environment, Perform Selfcare Safely, Demonstrate Good Safety w/ Transfers/Mobility Safety Interventions Identify Fall Risk,[place] Pt. to Environment,Reduce Environmental Hazards,Neuro Check Assessment,Re-Educate Patient/Caregiver for Safety ( Post Fall Update) Problem Area: Medication Education Medication Education Outcomes Medication Education Interventions Problem Area: Diabetes Education Diabetes Education Outcomes Diabetes Education Interventions Problem Area: Oxygenation Oxygenation Outcomes Oxygenation Interventions Problem Area: Cardiovascular Cardiovascular Outcomes Maintain or Improve Cardiovascular Status Cardiovascular Interventions Assess Vital Signs at least Every 4 hours,Cardiac Monitoring, EKG and ABG as Ordered. Physician Only Medical Prognosis and Rehabilitation Prognosis good, rehab potential good Potential (Completed by Physician) This plan of care has been developed based on the findings from the pre- admission assessment, post admission physician evaluation, information gathered from the assessments from all therapy disciplines and other pertinent clinicians. The plan of care has been reviewed and discussed in collaboration with the interdisciplinary team. The plan of care will be reviewed and updated at least weekly.
[2021-01-15] MEDS ORDERED: PROMETHAZINE 12.5 MG/10 ML ORAL LIQD PO PRN (21:54)
[2021-01-15] MEDS: MELATONIN 5 MG TAB PO SCH (22:04)
[2021-01-16] MEDS: CLARITHROMYCIN 500 MG TAB PO SCH ×3 (08:20→22:45)
[2021-01-16] MEDS: PANTOPRAZOLE 40 MG TAB PO SCH (08:20)
[2021-01-16] MEDS: SUCRALFATE 1 GM TAB PO SCH ×5 (08:20→22:44)
[2021-01-16] MEDS: METOPROLOL TARTRATE 25 MG TAB PO SCH ×2 (08:20→22:44)
[2021-01-16] MEDS: APIXABAN 5 MG TAB PO SCH ×3 (08:20→22:44)
[2021-01-16] MEDS: AMOXICILLIN 500 MG CAP PO SCH ×3 (08:20→22:45)
[2021-01-16] MEDS: ALPRAZolam 0.25 MG TAB PO PRN (15:38)
[2021-01-16] MEDS: MELATONIN 5 MG TAB PO SCH (22:44)
[2021-01-16] MEDS: HYDROcodone/ACETAMINOPHEN 5-325 MG TAB PO PRN (22:46)
[2021-01-17] MEDS: ALPRAZolam 0.25 MG TAB PO PRN (06:11)
[2021-01-17] MEDS: AMOXICILLIN 500 MG CAP PO SCH ×2 (09:54→22:15)
[2021-01-17] MEDS: PANTOPRAZOLE 40 MG TAB PO SCH (09:55)
[2021-01-17] MEDS: CLARITHROMYCIN 500 MG TAB PO SCH ×2 (09:55→22:15)
[2021-01-17] MEDS: METOPROLOL TARTRATE 25 MG TAB PO SCH ×2 (09:55→22:14)
[2021-01-17] MEDS: APIXABAN 5 MG TAB PO SCH ×2 (09:55→22:14)
[2021-01-17] MEDS: SUCRALFATE 1 GM TAB PO SCH ×4 (09:55→22:14)
[2021-01-17] MEDS: MELATONIN 5 MG TAB PO SCH (22:15)
[2021-01-18] MEDS: ALPRAZolam 0.25 MG TAB PO PRN ×2 (06:01→18:28)
[2021-01-18] MEDS: APIXABAN 5 MG TAB PO SCH ×3 (08:24→22:31)
[2021-01-18] MEDS: PANTOPRAZOLE 40 MG TAB PO SCH (08:25)
[2021-01-18] MEDS: METOPROLOL TARTRATE 25 MG TAB PO SCH ×2 (08:25→22:49)
[2021-01-18] MEDS: CLARITHROMYCIN 500 MG TAB PO SCH ×3 (08:25→22:31)
[2021-01-18] MEDS: SUCRALFATE 1 GM TAB PO SCH ×4 (08:25→22:49)
[2021-01-18] MEDS: AMOXICILLIN 500 MG CAP PO SCH ×4 (08:25→22:50)
--- NOTE | 2021-01-18 09:23 | Progress Note ---
Subjective Date of service: 01/18/21 Principal diagnosis: Debility and Afib Interval history: 70-year-old male admitted outside hospital on January 02, 2021 with complaints of chest pain and palpitations over the past several days prior to admission. Patient reportedly had several visits for chest pain in the past. EKG showed atrial fibrillation with RVR with a rate in the 140s. Patient converted to normal sinus rhythm and was started on Eliquis and metoprolol. Recent left heart cath showed no obstructive CAD. Patient did have GERD with PUD and was treated with PPI and Carafate. He underwent a upper GI endoscopy and results showed erosions. Patient was treated for H. pylori however that was stopped prior to transfer. Pathology report did show that the stomach was positive for H. pylori. Will attempt to contact outside hospital to find out why the treatment was stopped. Interval History: Patient is participating in therapy and making reasonable progress. Taking rest breaks as needed. +BM. Denies pain, palpitations, cough, N/V, or joint pain. Patient again had a subjective dyspnea and called 911 with the nurse standing right there in front of him. I have explained to the patient in the past that 911 is not the appropriate thing to do when he is in the hospital because they are going to bring him to the hospital where he is already yet. Patient does not seem to understand this concept. He is also refusing lab draws, therapy, medications. Continues to have poor safety awareness and shows signs of cognitive dysfunction, poorly defined. We will move to discharge the patient as soon as possible. Would benefit more so from subacute rehab/long-term care plac ement. Atrial fibrillation: Continue to monitor for any exacerbations. EKG performed 01/14 showed normal sinus rhythm. Continue rate control and anticoagulation. Monitor for any signs of bleeding on a regular basis with labs and examination. Patient is high risk for sudden decompensation due to possibility of atrial fibrillation induced embolism or bleeding event from anticoagulation. GERD/PUD with H. pylori: Continue antibiotics. Carafate restarted. Remains on Protonix as well. No signs of GI bleed currently, hemoglobin improving. Continue to monitor, no nausea, vomiting, bloody stools reported. Patient is now refusing antibiotics, have discussed that issue with him but not sure if he will continue to take them or not. Insomnia: Continue melatonin. Monitor for improvement ADL and mobility dysfunction: Continue therapy in order to improve patient's ability to perform ADLs and self-care as well as safe mobility. Dyspnea of uncertain cause: No clear cause for the patient's dyspnea. Vital signs remained stable during the entire course of his episode. All associated test ordered for dyspnea were reviewed and were negative. Patient had another episode of dyspnea on 01/18 however vital signs were stable during this time. Seems to be the patient's pre-existing issue that he consistently calls 911 to go to the hospital for in the past per outside records. All records, vitals, labs and medications were reviewed. No other issues per patient, nursing or therapy. Objective - Exam Narrative Exam: MUSCULOSKELETAL SPECIALTY EXAM CONSTITUTIONAL: Well developed, well nourished, appropriately groomed EENT: Hearing intact to soft voice RESPIRATORY: Clear to auscultation bilaterally, no increased work of breathing CARDIOVASCULAR: Regular Rate/ Rhythm, no swelling, edema or tenderness in BUE or BLE. All extremities warm. GI: + bowel sounds, soft, NTTP, nondistended. INTEGUMENTARY: Normal, no lesion, rash, masses or bruising noted in extremities. MUSCULOSKELETAL: BUE and BLE normal without defect, crepitus, subluxation, effusion, arthritic changes or TTP. BUE 4+/5, good ROM, with normal tone. BLE 4+/5 good ROM, with normal tone NEURO: CN 2-12 grossly intact. Sensation intact in all extremities. Coordination intact in BUE. No tremor noted in 4 extremities. POSTURE and GAIT: Sitting posture good. Balance appears reasonable with standing. Gait observed with patient walking around in the dominguez, no loss of balance witnessed. PSYCH: Alert, oriented x3, affect appears normal. Insight appears intact the patient does seem to have some issues with memory even though he is oriented x3 and can give me some basic information regarding his personal history. Appears to have cognitive dysfunction which is poorly defined. - Constitutional Vitals: Vital Signs - 12hr 01/17/21 01/18/21 01/18/21 23:24 07:38 07:59 Temperature 97.6 F Pulse Rate 95 H Respiratory 16 Rate Blood Pressure 136/100 O2 Sat by Pulse 98 97 98 Oximetry - Allied health notes Allied health notes reviewed: nursing, PT, OT FIMS assessment as documented by PT/OT/ST: Grooming Patient cleans teeth/dentures: Yes Patient berger/brushes hair: Yes Patient washes, rinses and Yes dries face: Patient washes, rinses and Yes dries hands: Patient performs (no make-up/ / (100%) shaving): Grooming FIM Score 6. Modified [place] (Needs equipment/device . Extra time.) Social interaction/Memory/Problem solving Social Interaction FIM Score 5. Supervision (Needs supv. <10%. Needs encouragement to participate.) Memory FIM Score 5. Supervision (Needs cueing <10%, stressful/ unfamiliar situations.) Problem Solving FIM Score 4. Minimal Assistance (Solves routine problems 75-90%.) Transfers Mode of Locomotion: Walking Toilet Transfers FIM Score 6. Modified [place] (Uses device, special seat or more time.) Patient transferred to: Shower Shower Transfers FIM Score 6. Modified [place] (Needs slide board, grab bar, tub bench.) Locomotion- walk/wheelchair Ambulation Distance 120 Eating Eating FIM Score 6. Modified [place] (Special consistency o r uses device.) Dressing-Upper body Patient retrieves clothing Yes items: Patient applies/removes UE No prosthesis or orthosis: Upper Body Dressing FIM Score 6. Modified [place] (Needs equipment, velcro or pros./orth.) Dressing-lower body Patient retrieves clothing Yes items: Patient applies/removes LE No: n/a prosthesis or orthosis: Lower Body Dressing FIM Score 6. Modified [place] (Needs equipment, velcro or pros./orth.) - Labs CBC & Chem 7: 01/15/21 08:00 01/15/21 08:00 Labs: Laboratory Results - last 72 hr 01/15/21 08:00 Creatinine 0.7 L Estimated GFR > 60 BUN/Creatinine Ratio 17 Assessment and Plan Atrial fibrillation: Continue anticoagulation and rate control. Monitor for any signs of worsening dysrhythmia. Consider cardiology consult if needed. GERD/PUD with recent diagnosis of H. pylori: Uncertain why treatment was stopped at outside hospital prior to discharge. Continue antibiotic treatment for H pylori, PPI and Carafate. Patient is now refusing these medications. Subjective dyspnea: Work-up completed and all results reviewed, negative. patient and vitals are stable, feel like this is likely related to anxiety. Patient had another episode on 01/18, all vitals were stable patient noted to not be in any acute distress other than stating he could not breathe. Will not discharge the patient with any controlled medications. Insomnia: Start melatonin. Trazodone stopped yesterday due to possible QT prolo ngation risk when restarting antibiotics. Hemorrhoids: Chronic issue, prescribed cream and suppository at the patient's request an acute flareup has calmed down. Medications remain available as need ed. Cognitive dysfunction: Unknown etiology and poorly defined. Patient is oriented and can answer some basic questions about his medical condition, scored a 15 on BIMs. However interactions with the patient to give the clinical impression of cognitive dysfunction. ADL dysfunction: OT will work on improving ability to perform ADLs (including assistive devices) to increase independence and decrease caregiver burden and improve functional transfers and mobility training. Difficulty walking: PT will work on gait training and proper use of assistive devices and advance as appropriate to use of stairs and outside ambulation on uneven surfaces. Unsteadiness on feet: PT will work on improving static and dynamic sitting and standing balance as well as proper use of assistive devices to decrease risk of falls. Abnormality of gait: PT will work to improve safety and efficiency of gait throu gh neuromotor training and gait training along with instruction on proper use of assistive devices. Muscle weakness: PT & OT will work on strengthening exercises to improve functional strength including mixture of closed and open kinetic chain exercises. Debility: PT & OT will work on improving overall functional status to improve participation with ADLs, mobility and social involvement. Fatigue: PT & OT will work on improving endurance through aerobic exercises and therapeutic activity while monitoring patients tolerance for activity and vital signs as needed. DVT ppx: Eliquis Pain: Continue physical modalities in therapy and pain medications as needed to achieve functional pain control. Sleep: Monitor and address as needed. Bowel: Monitor and address as needed. Appetite: Monitor and address as needed. Discharge planning: Pending therapy progress and care plan meeting. Will continue discussion with therapy team, SW, patient and family. Looking to discharge patient as soon as possible due to noncompliance and refusing medical care. Would prefer to transition him to long-term care but I am not sure that he will agree to that or that we will be able to find someone to offer a bed. Restrictions/ Precautions: Falls, cardiac WB status: FWB Functional Hx: ADLs: Independent Cognition: Independent Mobility: No AD Barriers to Discharge: Decreased mobility and ability to perform self care, balance deficits, weakness Estimated Length of Stay: 710 days Discharge Destination: Home with family support - Patient Problems (1) Atrial fibrillation Current Visit: Yes Status: Acute (2) Other reduced mobility Current Visit: Yes Status: Acute (3) Need for assistance with personal care Current Visit: Yes Status: Acute (4) Anxiety disorder, unspecified Current Visit: Yes Status: Acute (5) Acute peptic ulcer, site unspecified, without hemorrhage or perforation Current Visit: Yes Status: Acute (6) Helicobacter pylori [H. 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
[2021-01-18 14:48] LABS: Hemoglobin 14.6 gm/dl (11.8-15.2)
[2021-01-18 14:53] LABS: Hematocrit 44.2 % (35.5-45.6); Mean Corpuscular HGB Conc 34 % (32-34); Mean Corpuscular Volume 91 fl (84-94); Platelet Count 378 K/mm3 (140-440); Red Blood Count 4.84 M/mm3 (3.65-5.03); Red Cell Distribution Width 13.8 % (13.2-15.2)
[2021-01-18 16:14] LABS: Blood Urea Nitrogen 16 mg/dL (9-20); Calcium 9.8 mg/dL (8.4-10.2); Hemolysis Index 7
[2021-01-18 16:15] LABS: BUN/Creatinine Ratio 27
[2021-01-18] MEDS: MELATONIN 5 MG TAB PO SCH (22:30)
[2021-01-19] MEDS: METOPROLOL TARTRATE 25 MG TAB PO SCH (01:00)
[2021-01-19] MEDS: APIXABAN 5 MG TAB PO SCH (01:00)
[2021-01-19] MEDS: ALBUTEROL 2.5 MG/3 ML NEBU IH PRN ×2 (02:26→08:28)
[2021-01-19 08:01] VITALS: BP 99/67
[2021-01-19] MEDS: PANTOPRAZOLE 40 MG TAB PO SCH (08:04)
--- NOTE | 2021-01-19 09:09 | Discharge Summary ---
Providers - Providers Date of Admission: 01/13/21 02:13 Date of discharge: 01/19/21 Attending physician: WILBERT SZYMANSKI III, MD 01/12/21 10:18 Occupational Therapy Evaluate and Treat [CONS] Routine Comment: Reason For Exam: ADL dysfunction Physical Therapy Evaluation and Treat [CONS] Routine Comment: Reason For Exam: Mobility Dysfunction 01/12/21 10:30 Consult to Case Management [CONS] Routine Services Needed at Discharge: Home Health Services Notified:: cm notified Speech Therapy Evaluation and Treat [CONS] Routine Reason For Exam: Assess/Treat Speech/Cog/Swallow Primary care physician: TENT FINISHER Hospitalization Reason for admission: Debility and Afib Condition: Good Pertinent studies: Chest x-ray dated 01/14/2021 showed no acute findings, chronic emphysematous changes were suspected. EKG dated 01/14/2021 showed sinus rhythm without signs of acute abnormalities. Hospital course: 70-year-old male admitted outside hospital on January 02, 2021 with complaints of chest pain and palpitations over the past several days prior to admission. Patient reportedly had several visits for chest pain in the past. EKG showed atrial fibrillation with RVR with a rate in the 140s. Patient converted to normal sinus rhythm and was started on Eliquis and metoprolol. Recent left heart cath showed no obstructive CAD. Patient did have GERD with PUD and was treated with PPI and Carafate. He underwent a upper GI endoscopy and results showed erosions. Patient was treated for H. pylori however that was stopped prior to transfer. Pathology report did show that the stomach was positive for H. pylori. Will attempt to contact outside hospital to find out why the treat ment was stopped. Interval History: Atrial fibrillation: Continue to monitor for any exacerbations. EKG performed 01/14 showed normal sinus rhythm. Continue rate control and anticoagulation. Monitor for any signs of bleeding on a regular basis with labs and examination. Patient is high risk for sudden decompensation due to possibility of atrial fibrillation induced embolism or bleeding event from anticoagulation. GERD/PUD with H. pylori: Continue antibiotics. Carafate restarted. Remains on Protonix as well. No signs of GI bleed currently, hemoglobin improving. Continue to monitor, no nausea, vomiting, bloody stools reported. Patient is now refusing antibiotics, have discussed that issue with him but not sure if he will continue to take them or not. Insomnia: Continue melatonin. Monitor for improvement ADL and mobility dysfunction: Continue therapy in order to improve patient's ability to perform ADLs and self-care as well as safe mobility. Dyspnea of uncertain cause: No clear cause for the patient's dyspnea. Vital signs remained stable during the entire course of his episode. All associated test ordered for dyspnea were reviewed and were negative. Patient had another episode of dyspnea on 01/18 however vital signs were stable during this time. Seems to be the patient's pre-existing issue that he consistently calls 911 to go to the hospital for in the past per outside records. From a therapy standpoint, patient is modified independent with ADLs, will need assistance with IADLs including medication management. He is modified independent with ambulation and mobility. Patient will need 24/ supervision for cognitive issues which remain poorly defined Patient was discussed during team conference today and due to nonparticipation will be discharged today. We were planning on discharging later this week initially however patient is refusing therapy, refusing medications and calling 911. Patient is now requesting to stay for a couple more days, however at this point patient does not meet requirements to stay for rehab. Disposition: HOME HEALTH CARE SERVICE Final Discharge Diagnosis (Prints w/discharge instructions): Atrial fibrillation, debility Time spent for discharge: >30mins - Discharge Diagnoses (1) Atrial fibrillation Status: Acute (2) Other reduced mobility Status: Acute (3) Need for assistance with personal care Status: Acute (4) Anxiety disorder, unspecified Status: Acute (5) Acute peptic ulcer, site unspecified, without hemorrhage or perforation Status: Acute (6) Helicobacter pylori [H. pylori] as the cause of diseases classified elsewhere Status: Acute (7) watermaster (current) use of anticoagulants Status: Acute (8) Unsteadiness on feet Status: Acute (9) Ambulatory dysfunction Status: Acute (10) Shortness of breath Status: Acute (11) Hypokalemia Status: Acute (12) Age-related cognitive decline Status: Acute Core Measure Documentation - Palliative Care Palliative Care/ Comfort Measures: Not Applicable - Core Measures Any of the following diagnoses?: none Exam - Physical Exam Narrative exam: MUSCULOSKELETAL SPECIALTY EXAM CONSTITUTIONAL: Well developed, well nourished, appropriately groomed EENT: Hearing intact to soft voice RESPIRATORY: Clear to auscultation bilaterally, no increased work of breathing CARDIOVASCULAR: Regular Rate/ Rhythm, no swelling, edema or tenderness in BUE or BLE. All extremities warm. GI: + bowel sounds, soft, NTTP, nondistended. INTEGUMENTARY: Normal, no lesion, rash, masses or bruising noted in extremities. MUSCULOSKELETAL: BUE and BLE normal without defect, crepitus, subluxation, effusion, arthritic c hanges or TTP. BUE 4+/5, good ROM, with normal tone. BLE 4+/5 good ROM, with normal tone NEURO: CN 2-12 grossly intact. Sensation intact in all extremities. Coordination intact in BUE. No tremor noted in 4 extremities. POSTURE and GAIT: Sitting posture good. Balance appears reasonable with standing. Gait observed with patient walking around in the dominguez, no loss of balance witnessed. PSYCH: Alert, oriented x3, affect appears normal. Insight appears intact the patient does seem to have some issues with memory even though he is oriented x3 and can give me some basic information regarding his personal history. Appears to have cognitive dysfunction which is poorly defined. - Constitutional Vitals: Temp Pulse Resp BP Pulse Ox 98.5 F 78 16 99/67 99 01/19/21 07:12 01/19/21 07:12 01/19/21 07:12 01/19/21 07:12 01/19/21 07:12 Plan Activity: fall precautions, other (No driving, 26/12 supervision for cognitive purposes) Weight Bearing Status: Full Weight Bearing Diet: low cholesterol (Heart healthy diet) Special Instructions: record daily BP diary, physical therapy, occupational therapy, home health RN Care Plan Goals: Patient will need to follow-up with primary care for further maintenance and treatment of chronic medical issues. Patient will need to follow-up with cardiology for monitoring of atrial fibrillation. Patient seems to have issues with cognitive processing which may be early stages of dementia. If the patient continues to exhibit these issues, would recommend consideration of long-term care placement. At this point patient will need supervision for IADLs including medication management. Attempted to finish the patient's antibiotics for H pylori however he refused medications even after speaking with him about the importance of the medications. Would recommend patient follow-up with gastroenterology at some point in the near future. Follow up with: PRIMARY CARE, [Primary Care Provider] - 7 Days Prescriptions: Apixaban [Eliquis] 5 mg PO Q12HR #60 tablet Metoprolol [Lopressor TAB] 25 mg PO BID #60 tablet Pantoprazole [Protonix TAB] 40 mg PO QDAC #30 tablet
== END 2021-01-19 14:26 | DRG 948 ==
LOC: 3A 16:55 → UNDOADMIN 16:55 → 3B 01-13 02:13
PROVIDERS: ADMIT Physical Medicine & Rehabilitation; ATTEND Physical Medicine & Rehabilitation
DX: R53.81 Other malaise (principal); K27.3 Acute peptic ulcer, site unspecified, without hemorrhage or perforation; I48.91 Unspecified atrial fibrillation; E87.6 Hypokalemia; K21.9 Gastro-esophageal reflux disease without esophagitis; M62.81 Muscle weakness (generalized); G47.00 Insomnia, unspecified; B96.81 Helicobacter pylori [H. pylori] as the cause of diseases classified elsewhere; R26.81 Unsteadiness on feet; F41.9 Anxiety disorder, unspecified; J44.9 Chronic obstructive pulmonary disease, unspecified; Z79.899 Other long term (current) drug therapy; Z80.9 Family history of malignant neoplasm, unspecified; Z74.09 Other reduced mobility
CPT/HCPCS: 36415; 71046; 80048; 80053; 82550; 82553; 83735; 84484; 85025; 85027; 93005; 94640; G0378; Q0169